=== PATIENT | female | born 1995 | race American Indian/Alaskan Native ===

== ENCOUNTER 2024-03-06 16:11 | Emergency (ER) | payer BC, SELFPAY ==
[2024-03-06 16:52] VITALS: BP 103/65; PULSE 108; RESP 18; TEMP 36.4; O2SAT 100; BMI 21.0
--- NOTE | 2024-03-06 18:02 | W.ED.CHARTNO ---
ED Chart Note Chart Note Details Date: 03/06/24 Details: Patient left the ER without being seen. I had no direct care or interaction with this patient.
== END 2024-03-06 18:57 | disposition left against medical advice (07) ==
LOC: ED 18:56
PROVIDERS: Emergency Provider Family Medicine
DX: Z53.21 Procedure and treatment not carried out due to patient leaving prior to being seen by health care provider (principal)

== ENCOUNTER 2024-03-06 18:28 | Outpatient (CLI) | payer BC, SELFPAY ==
[2024-03-06 23:29] LABS: Chlamydia DNA Amplified* NOT DETECTED (No Detected); GC DNA Amplified* NOT DETECTED (No Detected)
== END 2024-03-06 18:29 | disposition home or self-care (01) ==
LOC: LKVREF 18:29
PROVIDERS: Visit Provider Physician Assistant
DX: N89.8 Other specified noninflammatory disorders of vagina (principal)
CPT/HCPCS: 87491; 87591

== ENCOUNTER 2024-04-13 10:53 | Emergency (ER) | payer BC, SELFPAY ==
[2024-04-13 11:00] VITALS: BP 115/78; PULSE 139; RESP 18; TEMP 38.3; O2SAT 92; BMI 18.3
--- NOTE | 2024-04-13 11:49 | CRLHL7_ITS ---
For Patients: As a result of the 21st Century Cures Act, medical imaging exams and procedure reports are released immediately into your electronic medical record. You may view this report before your referring provider. If you have questions, please contact your health care provider. Indication: Left ear pain and swelling Technique: Volumetric multidetector CT images of the temporal bones were obtained without the administration of IV contrast. Comparison: None available. Findings: The partially visualized brain parenchyma is normal in attenuation without evidence of midline shift or mass effect. There is minimal chronic mucosal thickening within the paranasal sinuses. The orbits and their contents are within normal limits. RIGHT TEMPORAL BONE: The external auditory canal is clear. The tympanic membrane is not thickened. The auditory ossicles are intact and well located. The epitympanum, mesotympanum and hypotympanum are clear. The aditus ad antrum and mastoid air cells are clear. The internal auditory canal is intact without evidence of asymmetrical widening. The vestibule and cochlea are grossly intact without evidence of bony dehiscence. The lateral, superior, and posterior semicircular canals are intact without evidence of dehiscence. The bony courses of the 7th cranial nerve, internal carotid artery and jugular veins are unremarkable without dehiscence. LEFT TEMPORAL BONE: There is marked thickening of the membranous portion of the external auditory canal. Moderate periauricular soft tissue swelling. No evidence of bony erosion of the osseous portion. Moderate debris and/or mucosal thickening within the external auditory canal is appreciated. There is thickening of the tympanic membrane. The auditory ossicles are intact and well located. There is minimal soft tissue thickening within the epitympanum, mesotympanum and hypotympanum. The aditus ad antrum and mastoid air cells are clear. The internal auditory canal is intact without evidence of asymmetrical widening. The vestibule and cochlea are grossly intact without evidence of bony dehiscence. The lateral, superior, and posterior semicircular canals are intact without evidence of dehiscence. The bony courses of the 7th cranial nerve, internal carotid artery and jugular veins are unremarkable without dehiscence. Impression: Marked thickening of the membranous portion of the left external auditory canal with additional mucosal thickening seen within the bony canal. There is additional mild periauricular soft tissue swelling. Findings likely represent developing otitis externa. No evidence of subcutaneous emphysema. Additional mild thickening of the tympanic membrane as well as soft tissue within the middle ear likely representing additional otitis media changes. Please note that all CT scans at this facility use dose modulation, iterative reconstruction, and/or weight-based dosing when appropriate to reduce radiation dose to as low as reasonably achievable. Dictated by Yimi Galicia MD @ 04/13/2024 1:23:44 PM (Electronically Signed)
--- NOTE | 2024-04-13 11:51 | ED_ITS ---
HPI - Ear Problem General Chief complaint: Ear/Nose/Throat Problem Stated complaint: Abscess on back of scalp Time Seen by Provider: 04/13/24 10:54 History of Present Illness HPI Narrative: This 28-year-old female comes in reporting left ear pain and swelling that began yesterday morning. She states that she came out of the shower and used a Q-tip in her ear and noted some fluid but no discomfort initially. Throughout the day then she began to have pain and some drainage from her left ear. Today she went to urgent care and was referred here for ongoing management. She arrives with tachycardia and heart rate at 139 beats per minute and temperature 101? F. She states that she did take ibuprofen prior to arrival. She reports that she is a little late on her expected menses and there may be a possibility of . She has lots of anxiety about these symptoms. Related Data Home Medications ?Medication ?Instructions ?Recorded ?Confirmed ibuprofen PO 04/13/24 04/13/24 Previous Rx's ?Medication ?Instructions ?Recorded amoxicillin 500 mg capsule 500 mg PO TID 7 days #21 caps 04/13/24 [id number] 3.3 4 drp otic (ear) TID #10 mL 04/13/24 mg-3 mg-10 mg-0.5 mg/mL ear drops,susp (Cortisporin-TC) Allergies Allergy/AdvReac Type Severity Reaction Status Date / Time No Known Drug Allergies Allergy Verified 04/13/24 09:53 Review of Systems Status of ROS: Reports: 10 or more systems reviewed and unremarkable except as noted in History and below Narrative: Constitutional: No fevers, no weight gain or loss. Eyes: No discharge. No vision changes. HENT: No congestion, no sore throat. Left ear pain with swelling in the canal and drainage from the canal. Pain also in the left mastoid process. Cardiovascular: No chest pain, no palpitations. Respiratory: No shortness of breath, no wheezes, no cough. Gastrointestinal: No abdominal pain, no vomiting, no diarrhea. Genitourinary: No dysuria, no hematuria. Musculoskeletal: Normal range of motion. Skin: No rashes, no pruritis. Neurological: No dizziness, weakness, sensory change, speech change. Endo/Heme/Allergies: No bruising or bleeding. No polydipsia. Pysch: no suicidality, no anxiety, no insomnia. All other systems reviewed and are negative. Exam Narrative: Exam Narrative: Constitutional: Well-developed, well-nourished, no acute distress. HEENT: Normocephalic, atraumatic. Oropharynx appears normal however she does have mild amount of trismus due to pain and symptoms in her left ear. Right tympanic membrane appears normal. Left tympanic membrane is not visualized because of swelling in the auditory canal. There is some clear fluid drainage but no sign of purulence. She does have tenderness and erythema in the left mastoid process behind the left ear. Neck: Normal range of motion. Nontender. Supple. Heart: Regular. No murmurs. Normal rate. Intact distal pulses. Lungs: Clear to auscultation. No chest discomfort. No wheezes, rhonchi, or rales. Abdomen: Normal bowel sounds. Nontender. No rebound tenderness. Genitalia: Deferred. Back: No midline tenderness. Normal range of motion. Extremities: Normal range of motion. No injury. Skin: Intact. No rash. Warm. No erythema or pallor. Neurologic: No altered sensation. No weakness. Alert and oriented. Psychiatric: No suicidality. No anxiety or depression. No insomnia. Nursing notes and vitals signs are reviewed. Const: Vital Signs, click to edit/add: Vital Signs - 24 hr 04/13/24 11:00 Temperature 101.0 F H Pulse Rate [Left P ulse Oximeter] 139 H Respiratory Rate 18 Blood Pressure [Le ft Upper Arm] 115/78 Pulse Oximetry 92 Oxygen Delivery Me thod Room Air Course Vital Signs Vital signs: Initial Vital Signs Temperature 101.0 F H 04/13/24 11:00 Temperature Source Temporal Artery Scan 04/13/24 11:00 Pulse Rate 139 H 04/13/24 11:00 Pulse Rhythm Regular 04/13/24 11:00 Pulse Strength 3+ Normal 04/13/24 11:00 Respiratory Rate 18 04/13/24 11:00 Blood Pressure 115/78 04/13/24 11:00 Blood Pressure Mean 90 04/13/24 11:00 Blood Pressure Position Sitting 04/13/24 11:00 Pulse Oximetry 92 04/13/24 11:00 Oxygen Delivery Method Room Air 04/13/24 11:00 Vital Signs Temperature 101.0 F H 04/13/24 11:00 Pulse Rate 139 H 04/13/24 11:00 Respiratory Rate 18 04/13/24 11:00 Blood Pressure 115/78 04/13/24 11:00 Pulse Oximetry 92 04/13/24 11:00 Oxygen Delivery Method Room Air 04/13/24 11:00 Temperature 101.0 F H 04/13/24 11:00 Pulse Rate 139 H 04/13/24 11:00 Respiratory Rate 18 04/13/24 11:00 Blood Pressure 115/78 04/13/24 11:00 Pulse Oximetry 92 04/13/24 11:00 Oxygen Delivery Method Room Air 04/13/24 11:00 Medications Administered Medications: Discontinued Medications Generic Name Dose Route Start Last Admin Trade Name Freq PRN Reason Stop Dose Admin Ceftriaxone Sodium 1 gm/ 100 mls @ 200 mls/hr 04/13/24 12:21 04/13/24 13:30 Sodium Chloride IVPB 04/13/24 12:22 200 mls/hr ONCE ONE Administration Medical Decision Making MDM Narrative Medical decision making narrative: This patient comes in feeling rather miserable and has temperature of 101? F and tachycardia. She reports pain and swelling around her left ear. An IV was established and labs are acquired. She is tripping triggers that make this look for possibility of sepsis. Her lactate returns at 1.3. Her white count is elevated at around 17,000. After cultures are obtained the patient did receive a g of Rocephin intravenously. Her blood results are indicating no evidence of sepsis. The patient states that she is feeling better. She continues to have normal blood pressure. CT scan of her left ear region does show evidence of findings typical of otitis externa. The patient states that she does take 2 or 3 showers every day. She is okay to be discharged home. I did advise her regarding matters that can be done to prevent recurrence of this kind of infection. She did received prescription for amoxicillin and Cortisporin otic. Lab Data Labs: Lab Results 04/13/24 Range/Units 12:09 WBC 17.56 H (4.50-11.00) K/uL RBC 3.77 L (4.00-5.20) m/uL Hgb 11.2 L (12.0-16.0) gm/dL Hct 33.5 (33.0-51.0) % MCV 89 (80-100) fL MCH 30 (26-34) pg MCHC 33 (32-36) gm/dL RDW Coeff of Casi 12.8 (11.5-15.5) % Plt Count 210 (140-440) K/uL Neut % (Auto) 87.0 H (42.0-72.0) % Lymph % (Auto) 4.7 L (20-44) % [place] % (Auto) 8.0 (0.0-11.0) % Eos % (Auto) 0.0 (0.0-7.0) % Baso % (Auto) 0.1 (0.0-3.0) % Neut # (Auto) 15.30 H (1.7-7.0) K/uL Lymph # (Auto) 0.80 L (0.90-2.90) K/uL [place] # (Auto) 1.40 H (0.00-0.90) K/UL Eos # (Auto) 0.00 (0.00-0.50) K/uL Baso # (Auto) 0.00 (0.00-0.30) K/uL Abs Immat Gran (auto) 0.00 (0.00-0.30) K/uL Imm/Tot Granulo (auto) 0.2 % Sodium 136 (135-149) mmol/L Potassium 3.5 L (3.6-5.1) mmol/L Chloride 101 (96-114) mmol/L Carbon Dioxide 24 (20-32) mmol/L Anion Gap 11 (7-15) mEq/L BUN 7 (5-24) mg/dL Creatinine 0.6 (0.5-1.5) mg/dL Estimated Creat Clear 101.74 Estimated GFR 127 ml/min Glucose 97 (60-115) mg/dL Lactate 1.3 (0.5-1.9) mmol/L Calcium 8.7 (8.4-10.6) mg/dL HCG, Qual Negative (Negative) Imaging Data CT scan - head: Radiologist's impression: Marked thickening of the membranous portion of the left external auditory canal with additional mucosal thickening seen within the bony canal. There is additional mild periauricular soft tissue swelling. Findings likely represent developing otitis externa. No evidence of subcutaneous emphysema. Additional mild thickening of the tympanic membrane as well as soft tissue within the middle ear likely representing additional otitis media changes. Discharge Plan Discharge Clinical Impression: Otitis externa Patient Disposition: Home, Self-Care Condition: Improved Additional Instructions: Take medication as prescribed. Follow up with MD or return if worsening symptoms occur. Prescriptions: New amoxicillin 500 mg capsule 500 mg PO TID 7 Days Qty: 21 0RF Cortisporin-TC 3.3-3-10-0.5 mg/mL drops,suspension 4 drp otic (ear) TID Qty: 10 0RF No Action ibuprofen PO Follow Up/Referrals: Provider,Not a Local [Primary Care Provider] - Stand Alone Forms: [employer] Info Instructions
[2024-04-13 12:16] LABS: Lactate* 1.3 mmol/L (0.5-1.9)
[2024-04-13 12:18] LABS: Basophils Percent Auto 0.1 % (0.0-3.0); Hematocrit 33.5 % (33.0-51.0); Hemoglobin* 11.2 gm/dL (12.0-16.0); Immature Granulocytes Pct Auto 0.2 %; Lymphocytes Percent Auto 4.7 % (20-44); Mean Corpuscular HGB Conc 33 gm/dL (32-36); Mean Corpuscular Hemoglobin 30 pg (26-34); Mean Corpuscular Volume 89 fL (80-100); Platelet Count* 210 K/uL (140-440); RDW Coefficient of Variation % 12.8 % (11.5-15.5); Red Blood Count 3.77 m/uL (4.00-5.20); White Blood Count* 17.56 K/uL (4.50-11.00)
[2024-04-13 12:31] LABS: Slide Review Reflex No
[2024-04-13 12:35] LABS: Chloride* 101 mmol/L (96-114)
[2024-04-13 12:36] LABS: Potassium* 3.5 mmol/L (3.6-5.1); Sodium* 136 mmol/L (135-149)
[2024-04-13 12:38] LABS: Creatinine* 0.6 mg/dL (0.5-1.5); Est. Creatinine Clearance* 101.74; Estimated Glomerular Filt Rate 127 ml/min
[2024-04-13 12:39] LABS: Anion Gap 11 mEq/L (7-15); Blood Urea Nitrogen* 7 mg/dL (5-24); Calcium* 8.7 mg/dL (8.4-10.6); Carbon Dioxide* 24 mmol/L (20-32); Glucose* 97 mg/dL (60-115)
[2024-04-13 13:20] LABS: HCG Qualitative Serum* Negative (Negative)
[2024-04-13] MEDS: cefTRIAXone 1 GM in 0.9 % SODIUM CHLORIDE Mini-bag 100 ML IVPB (13:30)
== END 2024-04-13 14:35 | disposition home or self-care (01) ==
PROVIDERS: Emergency Provider Emergency Medicine Emergency Medical Services
DX: H60.92 Unspecified otitis externa, left ear (principal)
CPT/HCPCS: 36415; 70480; 80048; 83605; 84703; 85025; 87040; 96374; 99284; J0696

== ENCOUNTER 2024-04-15 23:18 | Emergency (ER) | payer BC, SELFPAY ==
[2024-04-15 23:21] VITALS: BP 98/72; PULSE 90; RESP 18; TEMP 36.3; O2SAT 97; BMI 18.3
[2024-04-15 23:30] VITALS: BP 105/77; PULSE 86; RESP 18; O2SAT 98
[2024-04-16] VITALS: BP 103/71; PULSE 87; RESP 18; O2SAT 100
--- NOTE | 2024-04-16 00:04 | ED.EAR ---
HPI - Ear Problem General Chief complaint: Ear/Nose/Throat Problem Stated complaint: abscess in left ear, possibly spreading Time Seen by Provider: 04/15/24 23:58 History of Present Illness HPI Narrative: PATIENT IS A 28-YEAR-OLD WOMAN WHO HAS BOTH EXTERNAL OTITIS AND OTITIS MEDIA ON THE LEFT AND IS ON AMOXICILLIN AND CIPRO DROPS FOR THE LEFT EAR. SHE NOW HAS PAIN IN THE RIGHT EAR. THE LEFT EAR IS STILL ONLY HEALING TO LIMITED EXTENT STILL HAS A SIGNIFICANT AMOUNT OF DRAINAGE IN DISCHARGE. SHE HAS HAD NO FEVERS NO CHILLS NO NIGHT SWEATS NO CHANGE IN HER VISION OR HEARING NO CHEST PAIN OR SHORTNESS OF BREATH. PATIENT IS OTHERWISE FEELING FINE. Related Data Home Medications ?Medication ?Instructions ?Recorded ?Confirmed ibuprofen PO 04/13/24 04/13/24 Previous Rx's ?Medication ?Instructions ?Recorded amoxicillin 500 mg capsule 500 mg PO TID 7 days #21 caps 04/13/24 [id number]-[id number]-thonzonm 3.3 4 drp otic (ear) TID #10 mL 04/13/24 mg-3 mg-10 mg-0.5 mg/mL ear drops,susp (Cortisporin-TC) Allergies Allergy/AdvReac Type Severity Reaction Status Date / Time No Known Drug Allergies Allergy Verified 04/15/24 23:26 Review of Systems Status of ROS: Reports: 10 or more systems reviewed and unremarkable except as noted in History and below [facility] Social History Smoking Status: Current every day smoker Do you use any of these nicotine containing products: E-Cigarettes and Vaping Products Second hand tobacco smoke exposure: No How often do you have a drink containing alcohol: never How often do you have six or more drinks on one occasion: Never AUDIT-C Alcohol total score: 0 Non-prescribed substance use: marijuana (any form) service: No Exam Narrative: Exam Narrative: EXAM GENERAL: Patient appears comfortable and well. EYES: No scleral icterus. ENT: Left ear shows otitis externa and otitis media with drainage and discharge. Moderate otitis media noted in the right ear.. THYROID: no thyroid nodules or thyromegaly. LYMPH: No supraclavicular or cervical lymphadenopathy. SKIN: Visible skin seen during exam normal or with benign process only. EXT: No dependent lower extremity pedal edema. HEART: Regular rate and rhythm with no murmurs, rubs, or gallops. LUNGS: Clear to auscultation bilaterally with no crackles or wheezes. ABD: Soft, non tender, non distended. PSYCH: Good eye contact, speech is not pressured. Const: Vital Signs, click to edit/add: Vital Signs - 24 hr 04/15/24 23:21 Temperature 97.3 F L Pulse Rate [Pulse Oximeter] 90 Respiratory Rate 18 Blood Pressure [Le ft Upper Arm] 98/72 Pulse Oximetry 97 Oxygen Delivery Me thod Room Air Course Course ED Course: Patient seen and examined. Vital Signs Vital signs: Initial Vital Signs Temperature 97.3 F L 04/15/24 23:21 Temperature Source Temporal Artery Scan 04/15/24 23:21 Pulse Rate 90 04/15/24 23:21 Respiratory Rate 18 04/15/24 23:21 Blood Pressure 98/72 04/15/24 23:21 Blood Pressure Mean 80 04/15/24 23:21 Blood Pressure Position Sitting 04/15/24 23:21 Pulse Oximetry 97 04/15/24 23:21 Oxygen Delivery Method Room Air 04/15/24 23:21 Vital Signs Temperature 97.3 F L 04/15/24 23:21 Pulse Rate 90 04/15/24 23:21 Respiratory Rate 18 04/15/24 23:21 Blood Pressure 98/72 04/15/24 23:21 Pulse Oximetry 97 04/15/24 23:21 Oxygen Delivery Method Room Air 04/15/24 23:21 Temperature 97.3 F L 04/15/24 23:21 Pulse Rate 90 04/15/24 23:21 Respiratory Rate 18 04/15/24 23:21 Blood Pressure 98/72 04/15/24 23:21 Pulse Oximetry 97 04/15/24 23:21 Oxygen Delivery Method Room Air 04/15/24 23:21 Medical Decision Making MDM Narrative Medical decision making narrative: Patient presents with stable findings with regards her left ear with otitis externa and otitis media. She now has what appears to be otitis media in the right ear. Rest of exam is unremarkable. Differential diagnosis includes but not limited to otitis externa otitis media sinusitis URI COVID-19 influenza and RSV. I did treat her with changed from amoxicillin to Augmentin. I do think is going to be very important that she follows up with [facility] and I did give her contact number to ENT. She will continue her drops and changed from amoxicillin to Augmentin. Discharge Plan Discharge Clinical Impression: Otitis externa, Otitis media Patient Disposition: Home, Self-Care Condition: Stable Instructions: Ear Infection (ED) Additional Instructions: Stop amoxicillin Start Augmentin Continue ear drops Follow-up with [facility] this coming week. Activity Level: No Restrictions Discharge Diet: Regular Prescriptions: No Action ibuprofen PO amoxicillin 500 mg capsule 500 mg PO TID 7 Days Qty: 21 0RF Cortisporin-TC 3.3-3-10-0.5 mg/mL drops,suspension 4 drp otic (ear) TID Qty: 10 0RF Follow Up/Referrals: Provider,Not a Local [Primary Care Provider] - Stand Alone Forms: [employer] Info Instructions
== END 2024-04-16 00:41 | disposition home or self-care (01) ==
LOC: ED 04-16 00:41
PROVIDERS: Emergency Provider Internal Medicine
DX: H66.93 Otitis media, unspecified, bilateral (principal); H60.93 Unspecified otitis externa, bilateral
CPT/HCPCS: 99283; 99284

== ENCOUNTER 2024-08-28 09:14 | Outpatient (CLI) | payer BC, SELFPAY ==
--- OUTSIDE RECORDS SUMMARY | 2024-08-28 09:15 | XMS_ITS | Clinical Summary ---
Author Organization [facility] Address [place], [place] [address] Care Team Providers Care Flare Worker Name Role Phone Pcp, No Unavailable Unavailable Suzette Ybarra MD Primary Care Provi kelly Allergies No known active allergies Medications Medication Sig Dispensed Refills Start Date End Date Status cholecalciferol, Vitamin D3, (Vitamin D-3) 2,000 unit tabletIndications: Vitamin D deficiency Take 1 Tablet (2,000 units) by mouth once daily. 90 Tablet 3 12/28/2022 Active HYDROcodone-acetam inophen (NORCO) 5-325 mg per tabletIndications: Dentalgia Take 1 Tablet by mouth every 6 hours if needed for Pain. Max acetaminophen dose: 4000 mg in 24 hrs. 10 Tablet 05/03/2023 Active Active Problems Problem Noted Date Diagnosed Date PTSD (post-traumatic stress disorder) 01/06/2023 ERIN (generalized anxiety disorder) 01/06/2023 Bandemia 12/10/2016 Sinus tachycardia 12/10/2016 PID (acute pelvic inflammatory disease) 12/10/19 17 Bacterial vaginosis 12/10/2016 Nausea alone 12/10/2016 Depression 03/29/2012 Immunizations Name Administration Dates Next Due DT (Age < 7 years) 10/18/2002, 9,04/18/1998,01/10,1997 DTaP 10/18/2002, 8,01/10/1998,11/27 DTaP-HIB (TriHIBIT) 03/13/1999 HIB PRP-OMP (PedvaxHIB) 03/13/1999,04/18,01/10/1998,11/27 Hepatitis A (Peds) 04/16/2014 Hepatitis B (Peds) 04/18/1998,1997, 997 Hepatitis B, Unspecified 04/18/1998,1997 Hib Conjugate, Unspecified 04/18/1998,01/10/1998 ,1997 Human Papilloma Virus Vaccine 05/28/2010, 009,02/26/2009 Inactivated Polio Vaccine 10/18/2002,02/1998,01/10/1998,11/27 Influenza Virus, Unspecified 10/15/2008 Influenza, IIV4 08/22/2018,12/12/2016 Influenza,LAIV3 Live Intrana bam (Flumist) 10/15/2008 MMR 10/18/2002,03/13/1999 Meningococcal Vaccine (Menactra) 04/16/2014,02/13 Oral Polio Vaccine 04/18/1998,01/10/1998, 998 Tdap 07/28/2018,06/16/2016,02/26/2009 Varicella Vaccine 05/28/2010,02/26/2009 Family History Medical History Relation Name Comments Diabetes Maternal Grandmother Relation Name Status Comments Maternal Grandmother Social History Tobacco Use Types Packs/Day Years Used Date Smoking Tobacco: Former Cigarettes Smokeless Tobacco: Never Tobacco Cessation:Counseling Given: Not Answered Alcohol Use Standard Drinks/Week Comments Not Currently 0 (1 standard drink = 0.6 oz pur e alcohol) PHQ-2 Answer Date Recorded PHQ-2 TOTAL SCORE 0 01/11/2023 Social Connections Answer Date Recorded Frequency of Communication with Friends and Fami ly 0 04/25/2024 Financial Resource Strain Answer Date R ecorded Difficulty of Paying Living Expenses 3 04/25/2024 Difficulty of Paying Living Expenses Not on file 04/25/2024 Food Insecurity Answer Date Recorded Worried About Running Out of Food in the Last Ye ar 1 04/25/2024 Transportation Needs Answer Date Record ed Lack of Transportation (Medical) 1 04/25/2024 Housing Stability Answer Date Recorded Unable to Pay for Housing in the Last Year 1 04/25/2024 Sex and Gender Information Value Date Recorded Sex Assigned at Not on file Gender Identity Not on file Sexual Orientation Not on file Obstetrics History Last Filed Vital Signs Vital Sign Reading Time Taken Comments Blood Pressure 106/72 04/25/2024 11:21 AM CDT Pulse 100 04/25/2024 11:21 AM CDT Temperature 36.8 ??C (98.2 ??F) 06/03/2023 9:21 PM CD T Respiratory Rate 16 06/03/2023 9:21 PM CDT Oxygen Saturation 98% 04/25/2024 11:21 AM CDT Inhaled Oxygen Concentration - - Weight 44 kg (97 lb) 04/25/2024 11:21 AM CDT Height 157.5 cm (5' 2) 06/03/2023 9:21 PM CDT Body Mass Index 17.74 06/03/2023 9:21 PM CDT Plan of Treatment Health Maintenance Due Date Last Done Comments Hepatitis C screening for age 18-79 2015 Pap test for age 21-65 2018 BMI (ht and wt on same day) for age 18+ 12/23/2023 12/23/2022 Depression screening for age 12+ 01/14/2024 01/13/2023, 01/11/2023, 12/31/2022, Additional history exists COVID-19 vaccine series ( season) 2024 Influenza for age 9-49 07/16/2024 8, 12/12/2016, 10/15/2008, Additional history exists Tetanus booster 07/28/2028 07/28/2018, 12/2015, 02/26/2009 HPV series for age 9-26 Completed 05/28/20 10, 05/08/2009, 02/26/2009 HIV for age 15-65 Completed 12/11/2016 Tdap Completed 07/28/2018, 12/2015, 02/26/2009 Pneumococcal series for age 6-64 Aged Out No longer eligible based on patient's age to complete this topic Procedures Procedure Name Priority Date/Time Associated Diagnosis Comments ANTI HIV 1/2 Today 12/11/2016 12:10 PM [employer] PERSON from Last 3 Months or Most Recently Relevant to Health Maintenance Results * HIV 1&2 TODAY (12/11/2016 12:10 PM [employer] PERSON) HIV-1/HIV-2 ANTIBODY Non-Reacti ve Non-Reacti ve 12/11/2016 1:23 PM [employer] PERSON [facility] Blood BLOOD SPECIMEN / Unknown Venipuncture / Unknown 12/11/2016 12:10 PM [employer] PERSON 12/11/2016 12:24 PM [employer] PERSON Narrative [facility] - 12/11/2016 1:23 PM [employer] PERSON HIV-1 p24 and HIV-1/HIV-2 Ab not detected Armin Pennington MD [facility] [address] [place] [address], from Last 3 Months or Most Recently Relevant to Health Maintenance Advance Directives * Full Code (Latest Code Status on File) Date Activated Date Inactivated Comments 12/10/2016 9:48 PM 12/12/2016 4:58 PM * Full Code Date Activated Date Inactivated Comments 03/28/2012 6:19 PM 03/30/2012 1:49 PM Care Teams Flare Worker Relationship Specialty Start Date End Date Suzette Ybarra MD [address] [place] [address] PCP - General Family Practice 04/17/24 Pcp, No . 12/23/22
[2024-08-28 15:23] LABS: Chlamydia DNA Amplified* NOT DETECTED (No Detected); GC DNA Amplified* NOT DETECTED (No Detected)
== END 2024-08-28 09:15 | disposition home or self-care (01) ==
PROVIDERS: Visit Provider Nurse Practitioner Family
DX: L25.9 Unspecified contact dermatitis, unspecified cause (principal); L29.9 Pruritus, unspecified; Z91.89 Other specified personal risk factors, not elsewhere classified
CPT/HCPCS: 86592; 86703; 86706; 86803; 87340; 87491; 87591

== ENCOUNTER 2024-12-20 10:00 | Outpatient (CLI) | payer BC, SELFPAY ==
[2024-12-20 15:10] LABS: Chlamydia DNA Amplified* NOT DETECTED (No Detected); GC DNA Amplified* NOT DETECTED (No Detected)
== END 2024-12-20 10:01 | disposition home or self-care (01) ==
LOC: NFLDUCREF 10:00
DX: R30.0 Dysuria (principal); N92.6 Irregular menstruation, unspecified
CPT/HCPCS: 87086; 87491; 87591

== ENCOUNTER 2025-03-06 08:34 | Outpatient (CLI) | payer BC, SELFPAY | END 2025-03-06 08:35 | disposition home or self-care (01) | PROVIDERS: Visit Provider Nurse Practitioner | DX: N30.00 Acute cystitis without hematuria (principal); B96.20 Unspecified Escherichia coli [E. coli] as the cause of diseases classified elsewhere | CPT/HCPCS: 87086 ==